=== PATIENT | male | born 1970 | race Caucasian/White ===

== ENCOUNTER 2020-04-24 02:37 | Emergency (ER) | payer OTHER, MEDICAID, SELFPAY ==
[2020-04-24 02:48] VITALS: BP 145/92; PULSE 112; RESP 17; TEMP 37.2; O2SAT 97; BMI 23.7
--- NOTE | 2020-04-24 02:50 | ED_ITS ---
HPI - General Adult <Michel Charles DO - Last Filed: 04/24/20 07:29> General Chief complaint: Psychiatric Symptoms Stated complaint: scared shitless Time Seen by Provider: 04/24/20 02:40 Source: patient Mode of arrival: Ambulatory Limitations: no limitations History of Present Illness HPI narrative: Patient is a 49-year-old male brought in voluntarily with police for evaluation after he called the police because he states that he still 2 individuals he in his hotel room this evening. He states he did do meth last evening. He states that he does drink ?a little ?alcohol but did not have any last evening. He states he is not currently seeing or hearing any individuals. He states the 2 individuals who were in his room last evening were calling him names. He states he is not suicidal, not homicidal. 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 He has been admitted to the hospital in the past for depression. Related Data Allergies Allergy/AdvReac Type Severity Reaction Status Date / Time No Known Drug Allergies Allergy Verified 04/24/20 03:31 Review of Systems <Michel Charles DO - Last Filed: 04/24/20 07:29> Constitutional Constitutional: Denies headache(s) ENT Ears, Nose, Mouth, and Throat: Denies headache(s) Cardiovascular Cardiovascular: Denies chest pain and Denies dyspnea Respiratory Respiratory: Denies dyspnea Gastrointestinal Gastrointestinal: Denies abdominal pain Neurologic Neurologic: Denies headache(s) Psychiatric Psychiatric: Reports visual hallucinations, Denies homicidal ideation and Denies suicidal ideation Hematologic/Lymphatic Hematologic/Lymphatic: Denies easy bruising Patient History <Michel Charles DO - Last Filed: 04/24/20 07:29> Medical History Depression Drug abuse Social History lives independently: Yes Smoking Status: Current every day smoker Exam <Michel Charles DO - Last Filed: 04/24/20 07:29> Initial Vital Signs Initial Vital Signs: Vital Signs Temperature 99 F 04/24/20 02:48 Pulse Rate 112 H 04/24/20 02:48 Respiratory Rate 17 04/24/20 02:48 Blood Pressure 145/92 H 04/24/20 02:48 Pulse Oximetry 97 04/24/20 02:48 Const General: cooperative HENMT Head: normal to inspection and normocephalic Resp Effort & Inspection: normal respiratory effort Cardio Rate: regular rate Skin Lesions: no lesions Rashes: no rashes Neuro General: patient alert and patient awake Extrem General: normal to inspection Psych Appearance: disheveled Speech and Movement: speech clear and restless Mood: anxious mood, paranoid and No angry Affect: anxious affect and elated Attitude: cooperative Thought Process: illogical Thought Content: no homicidality and suicidality <Carrie Rossi DO - Last Filed: 04/24/20 19:20> Initial Vital Signs Initial Vital Signs: Vital Signs Temperature 99 F 04/24/20 02:48 Pulse Rate 112 H 04/24/20 02:48 Respiratory Rate 17 04/24/20 02:48 Blood Pressure 145/92 H 04/24/20 02:48 Pulse Oximetry 97 04/24/20 02:48 Course <Michel Charles DO - Last Filed: 04/24/20 07:29> Orders Ordered: ED Orders 04/24/20 15:15 COVID19 Stat Discontinued Medications Lorazepam (Lorazepam 0.5 Mg Tablet) 1 mg PO NOW ONE Stop: 04/24/20 15:16 Last Admin: 04/24/20 15:32 Dose: 1 mg Documented by: GEOVANNI Nicotine (Nicotine 21 Mg Patch) 21 mg TOP NOW ONE Stop: 04/24/20 14:27 Last Admin: 04/24/20 14:44 Dose: 21 mg Documented by: GEOVANNI Vital Signs Vital signs: Vital Signs - 8 hr 04/24/20 15:53 Pulse Rate 93 H Respiratory Rate 16 Blood Pressure 137/82 Pulse Oximetry 98 <Carrie Rossi DO - Last Filed: 04/24/20 19:20> Orders Ordered: ED Orders 04/24/20 15:15 COVID19 Stat Discontinued Medications Lorazepam (Lorazepam 0.5 Mg Tablet) 1 mg PO NOW ONE Stop: 04/24/20 15:16 Last Admin: 04/24/20 15:32 Dose: 1 mg Documented by: GEOVANNI Nicotine (Nicotine 21 Mg Patch) 21 mg TOP NOW ONE Stop: 04/24/20 14:27 Last Admin: 04/24/20 14:44 Dose: 21 mg Documented by: GEOVANNI Vital Signs Vital signs: Vital Signs - 8 hr 04/24/20 15:53 Pulse Rate 93 H Respiratory Rate 16 Blood Pressure 137/82 Pulse Oximetry 98 Medical Decision Making <Michel Charles DO - Last Filed: 04/24/20 07:29> Lab Data Lab results reviewed: Yes I reviewed the patient's lab results. Result diagrams: 04/24/20 02:57 04/24/20 02:57 Labs: Lab Results 04/24/20 04/24/20 04/24/20 Range/Units 02:57 02:57 02:57 WBC 10.9 (4.5-11.0) X10^3/uL RBC 4.97 (4.5-5.9) X10^6/uL Hgb 16.8 (13.5-17.5) g/dL Hct 47.8 (41-53) % MCV 96.2 (80-100) fL MCH 33.7 (26-34) PG MCHC 35.1 (30-36) % RDW 12.1 (11.6-14.8) % Plt Count 250 (150-400) X10^3/uL Neut % (Auto) 71.9 (50-75) % Lymph % (Auto) 17.9 L (25-40) % [place] % (Auto) 8.8 (3-14) % Eos % (Auto) 1.0 L (2-4) % Baso % (Auto) 0.4 (0-2) % Neut # (Auto) 7800 H (5327-5614) /uL Lymph # (Auto) 2000 (2990-3185) /uL [place] # (Auto) 1000 H (0-900) /uL Eos # (Auto) 100 (0-450) /uL Baso # (Auto) 0 (0-100) /uL Sodium 134 L (137-145) mmol/L Potassium 4.2 (3.4-5.1) mmol/L Chloride 99 (98-107) mmol/L Carbon Dioxide 25 (22-32) mmol/L BUN 11 (9-20) mg/dL Creatinine 0.86 (0.66-1.25) mg/dL Estimated GFR > 60.0 (>60) mL/min BUN/Creatinine Ratio 12.8 (6-22) Glucose 135 H (70-100) mg/dL Calcium 9.8 (8.4-10.2) mg/dL TSH 1.78 (0.47-4.68) uIU/mL U Opiates 300ng/mL cut (Negative) Ur Oxycodone Screen (Negative) Urine Methadone Screen (Negative) Ur Barbiturates Screen (Negative) U Tricyclic Antidepress (Negative) Ur Phencyclidine Scrn (Negative) Ur Amphetamines Screen (Negative) U Methamphetamines Scrn (Negative) Ur MDMA Scrn (Ecstasy) (Negative) U Benzodiazepines Scrn (Negative) Urine Cocaine Screen (Negative) U Marijuana (THC) Screen (Negative) Ethyl Alcohol < 10 ( - 10) mg/dL SARS-CoV-2 (PCR) (Negative) 04/24/20 04/24/20 Range/Units 09:33 15:15 WBC (4.5-11.0) X10^3/uL RBC (4.5-5.9) X10^6/uL Hgb (13.5-17.5) g/dL Hct (41-53) % MCV (80-100) fL MCH (26-34) PG MCHC (30-36) % RDW (11.6-14.8) % Plt Count (150-400) X10^3/uL Neut % (Auto) (50-75) % Lymph % (Auto) (25-40) % [place] % (Auto) (3-14) % Eos % (Auto) (2-4) % Baso % (Auto) (0-2) % Neut # (Auto) (0058-8741) /uL Lymph # (Auto) (8495-7959) /uL [place] # (Auto) (0-900) /uL Eos # (Auto) (0-450) /uL Baso # (Auto) (0-100) /uL Sodium (137-145) mmol/L Potassium (3.4-5.1) mmol/L Chloride (98-107) mmol/L Carbon Dioxide (22-32) mmol/L BUN (9-20) mg/dL Creatinine (0.66-1.25) mg/dL Estimated GFR (>60) mL/min BUN/Creatinine Ratio (6-22) Glucose (70-100) mg/dL Calcium (8.4-10.2) mg/dL TSH (0.47-4.68) uIU/mL U Opiates 300ng/mL cut Negative (Negative) Ur Oxycodone Screen Negative (Negative) Urine Methadone Screen Negative (Negative) Ur Barbiturates Screen Negative (Negative) U Tricyclic Antidepress Negative (Negative) Ur Phencyclidine Scrn Negative (Negative) Ur Amphetamines Screen Positive H (Negative) U Methamphetamines Scrn Positive H (Negative) Ur MDMA Scrn (Ecstasy) Negative (Negative) U Benzodiazepines Scrn Negative (Negative) Urine Cocaine Screen Negative (Negative) U Marijuana (THC) Screen Positive H (Negative) Ethyl Alcohol ( - 10) mg/dL SARS-CoV-2 (PCR) Negative (Negative) MDM Narrative Medical decision making narrative: Patient did admit to doing methamphetamine last night. He was not homicidal, not suicidal. Slept in the emergency departm ent. Care turned over to day provider to follow up and disposition. <Carrie Rossi, DO - Last Filed: 04/24/20 19:20> Lab Data Labs: Lab Results 04/24/20 04/24/20 04/24/20 Range/Units 02:57 02:57 02:57 WBC 10.9 (4.5-11.0) X10^3/uL RBC 4.97 (4.5-5.9) X10^6/uL Hgb 16.8 (13.5-17.5) g/dL Hct 47.8 (41-53) % MCV 96.2 (80-100) fL MCH 33.7 (26-34) PG MCHC 35.1 (30-36) % RDW 12.1 (11.6-14.8) % Plt Count 250 (150-400) X10^3/uL Neut % (Auto) 71.9 (50-75) % Lymph % (Auto) 17.9 L (25-40) % [place] % (Auto) 8.8 (3-14) % Eos % (Auto) 1.0 L (2-4) % Baso % (Auto) 0.4 (0-2) % Neut # (Auto) 7800 H (0311-0708) /uL Lymph # (Auto) 2000 (0715-7314) /uL [place] # (Auto) 1000 H (0-900) /uL Eos # (Auto) 100 (0-450) /uL Baso # (Auto) 0 (0-100) /uL Sodium 134 L (137-145) mmol/L Potassium 4.2 (3.4-5.1) mmol/L Chloride 99 (98-107) mmol/L Carbon Dioxide 25 (22-32) mmol/L BUN 11 (9-20) mg/dL Creatinine 0.86 (0.66-1.25) mg/dL Estimated GFR > 60.0 (>60) mL/min BUN/Creatinine Ratio 12.8 (6-22) Glucose 135 H (70-100) mg/dL Calcium 9.8 (8.4-10.2) mg/dL TSH 1.78 (0.47-4.68) uIU/mL U Opiates 300ng/mL cut (Negative) Ur Oxycodone Screen (Negative) Urine Methadone Screen (Negative) Ur Barbiturates Screen (Negative) U Tricyclic Antidepress (Negative) Ur Phencyclidine Scrn (Negative) Ur Amphetamines Screen (Negative) U Methamphetamines Scrn (Negative) Ur MDMA Scrn (Ecstasy) (Negative) U Benzodiazepines Scrn (Negative) Urine Cocaine Screen (Negative) U Marijuana (THC) Screen (Negative) Ethyl Alcohol < 10 ( - 10) mg/dL SARS-CoV-2 (PCR) (Negative) 04/24/20 04/24/20 Range/Units 09:33 15:15 WBC (4.5-11.0) X10^3/uL RBC (4.5-5.9) X10^6/uL Hgb (13.5-17.5) g/dL Hct (41-53) % MCV (80-100) fL MCH (26-34) PG MCHC (30-36) % RDW (11.6-14.8) % Plt Count (150-400) X10^3/uL Neut % (Auto) (50-75) % Lymph % (Auto) (25-40) % [place] % (Auto) (3-14) % Eos % (Auto) (2-4) % Baso % (Auto) (0-2) % Neut # (Auto) (3559-7499) /uL Lymph # (Auto) (0507-2675) /uL [place] # (Auto) (0-900) /uL Eos # (Auto) (0-450) /uL Baso # (Auto) (0-100) /uL Sodium (137-145) mmol/L Potassium (3.4-5.1) mmol/L Chloride (98-107) mmol/L Carbon Dioxide (22-32) mmol/L BUN (9-20) mg/dL Creatinine (0.66-1.25) mg/dL Estimated GFR (>60) mL/min BUN/Creatinine Ratio (6-22) Glucose (70-100) mg/dL Calcium (8.4-10.2) mg/dL TSH (0.47-4.68) uIU/mL U Opiates 300ng/mL cut Negative (Negative) Ur Oxycodone Screen Negative (Negative) Urine Methadone Screen Negative (Negative) Ur Barbiturates Screen Negative (Negative) U Tricyclic Antidepress Negative (Negative) Ur Phencyclidine Scrn Negative (Negative) Ur Amphetamines Screen Positive H (Negative) U Methamphetamines Scrn Positive H (Negative) Ur MDMA Scrn (Ecstasy) Negative (Negative) U Benzodiazepines Scrn Negative (Negative) Urine Cocaine Screen Negative (Negative) U Marijuana (THC) Screen Positive H (Negative) Ethyl Alcohol ( - 10) mg/dL SARS-CoV-2 (PCR) Negative (Negative) MDM Narrative Medical decision making narrative: Patient signed out to me from Dr. Charles of seen evaluated patient myself. When asked if he is still seeing things that are not there he said ?0h you too he then stated he just wanted to but did not give me a plan. He then covered himself up in blankets and did not answer any more questions. He was evaluated by social Work. Patient is accepted at [facility] Discharge Plan Departure Patient Disposition: Home Clinical Impression: Polysubstance abuse Instructions: DI for Substance Use Disorder Activity Restrictions/Additional Instructions: Medically cleared for [facility] COVID negative GO DIRECTLY TO THE REHAB FACILITY WITHOUT STOPPING Please follow-up with her primary care provider once released for any further medical issues
[2020-04-24 03:24] LABS: Add Manual Diff / Slide Review NO; Basophils Absolute Auto 0 /uL (0-100); Basophils Percent Auto 0.4 % (0-2); Eosinophils Absolute Auto 100 /uL (0-450); Hematocrit 47.8 % (41-53); Hemoglobin 16.8 g/dL (13.5-17.5); Lymphocytes Absolute Auto 2000 /uL (1100-4500); Lymphocytes Percent Auto 17.9 % (25-40); Mean Corpuscular HGB Conc 35.1 % (30-36); Mean Corpuscular Hemoglobin 33.7 PG (26-34); Mean Corpuscular Volume 96.2 fL (80-100); Monocytes Absolute Auto 1000 /uL (0-900); Monocytes Percent Auto 8.8 % (3-14); Neutrophils Absolute Auto 7800 /uL (1500-7000); Neutrophils Percent Auto 71.9 % (50-75); Platelet Count 250 X10^3/uL (150-400); Red Blood Cell Count 4.97 X10^6/uL (4.5-5.9); Red Cell Distribution Width 12.1 % (11.6-14.8); White Blood Cell Count 10.9 X10^3/uL (4.5-11.0)
[2020-04-24 03:27] LABS: BUN Creatinine Ratio 12.8 (6-22); Blood Urea Nitrogen 11 mg/dL (9-20); Calcium 9.8 mg/dL (8.4-10.2); Carbon Dioxide 25 mmol/L (22-32); Chloride 99 mmol/L (98-107); Estimated Glomerular Filt Rate > 60.0 mL/min (>60); Ethanol (ETOH) < 10 mg/dL; Glucose 135 mg/dL (70-100); HEMOLYSIS 25 (0-50); Potassium 4.2 mmol/L (3.4-5.1); Sodium 134 mmol/L (137-145)
--- NOTE | 2020-04-24 03:30 | PC.NURSE ---
pt requesting shower. offered pt. independently showered.
[2020-04-24 04:04] LABS: Thyroid Stimulating Hormone 1.78 uIU/mL (0.47-4.68)
[2020-04-24 09:48] LABS: UR Morphine/Opiate cutoff 300 Negative (Negative); Ur Creatinine Normal (Normal); Ur Specific Gravity Normal (Normal); Urine Amphetamines Positive (Negative); Urine Barbiturates Negative (Negative); Urine Benzodiazepines Negative (Negative); Urine Cocaine Negative (Negative); Urine MDMA Negative (Negative); Urine Methadone Negative (Negative); Urine Methamphetamines Positive (Negative); Urine Oxycodone Negative (Negative); Urine Phencyclidine Negative (Negative); Urine Tetrahydrocannabinol Positive (Negative); Urine Tricyclic Antidepressant Negative (Negative); Urine pH Normal (Normal)
[2020-04-24 10:15] VITALS: BP 98/54; PULSE 93; RESP 16; O2SAT 98
--- NOTE | 2020-04-24 13:02 | PC.NURSE ---
Meeting with JET Neville. sitting up in bed eating lunch
--- NOTE | 2020-04-24 13:09 | PC.NURSE ---
Pt given toothbrush and toothpaste, performing ADLs independently.
[2020-04-24] MEDS: NICOTINE 21 MG PATCH TOP (14:44)
--- NOTE | 2020-04-24 15:23 | CM.SWNOTE ---
MOVIE THEATER MANAGER assessment MOVIE THEATER MANAGER - Solutions Sales Consultant Assessment MOVIE THEATER MANAGER - Solutions Sales Consultant Assessment Start: 04/24/20 14:23 Freq: Status: Active Protocol: Document 04/24/20 14:23 OLIVA (Rec: 04/24/20 15:23 OLIVA [email or web address]) MOVIE THEATER MANAGER/Solutions Sales Consultant Assessment Time Spent with Patient Start date 04/24/20 Visit Start Time 12:20 End date 04/24/20 Visit End Time 13:00 Total time Care Management spent on 40 patient visit-in minutes Mental Health Screening Include Onset, Duration, Intensity Presenting Problem Patient presents to this ED by police due to paranoia and hallucinations. Per report from patient, patient heard someone break into the hotel room he was staying at, police and management searched room and premises and found no signs of break in. Patient reports he then moved to a different motel, noticed a car with two passengers that nodded to him as he walked by , and called the police again because he believed that the passengers in this vehicle had followed him from previous motel. Patient states I know this sounds crazy, I'm not delusional during assessment. Precipitating Event(s) Patient endorses snorting meth previous evening. Patient discusses significant life stressors during past 6 months, including relapse on alcohol, loss of job and housing, and tension with family members. Patient informs MOVIE THEATER MANAGER that he has not been able to get his psych meds for roughly 6 months. Patient Strengths Patient has been consistent and persistent in his efforts to obtaining treatment and recovery services. Current Behavioral Health Provider(s) None current Include Facility, Provider, Ph. # Psych. Hx Mental Health and Chemical Patient reports previous dx of Dependency anxiety, depression, OCD, and presents to this ED with delusions and paranoia. Patient states I'm an alcoholic, and relapsed from a 7 year period of sobriety roughly 1 year prior. Patient endorses meth use from previous day, but states that he last did meth a few years ago. Patient states he drank 3 beers previous morning. Family Hx of Behavioral Abuse Patient reports tension with his sister with whom he lives. Psychiatric Hospitalizations (date(s)/ Patient reports previous location) behavioral health hospitalization at [facility] . Psychosocial information & Support Patient is a 49 y/o male who Systems lost his housing and job in [place] roughly 6 months ago after relapsing on ETOH. Patient has been working with [facility] to obtain inpatient treatment at [facility] and has been living with his sister in [place]. Patient reports tension in this living situation and reports that he has spent some nights sleeping outside due to the tension. Patient states he has several family members, but does not describe any as strong support systems. 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 Mental Status Orientation (Person/Place/Time) Oriented x3 Stated Mood OK Affect (Congruent with Mood?) anxious, tearful, stable, congruent with mood. Thought Content - Specify/Describe Delusions, paranoia, and audio Obsessions, Delusions, Hallucinations hallucinations reported by patient previous evening. Thought Processes (Nvnngwk-Htjmbfxg-Hmdp Coherent Iwwnavwf-Cphblgpm-Kelsyunnwx- Mjzkhgrrjzadow-Dkectib-Xuialwjqbyru- Thought Blocking) Speech (Vmsayo-Vwfe-Nuxczff-Rapid-Soft- Normal Loud-Pressured) Motor (Swueww-Zqchbjipd-Rapb-Other) Slight fidgeting Insight (Buwv-Iqvz-Pzzo/Limited) Poor Judgement (Atbe-Rraa-Wsgk/Limited) Poor Impulse Control (Adequate-Impaired) Adequate in interview Memory (Wjvtvenuy-Xjuxpm-Ibipin, Intact for interview, not Impaired-Intact) formally assessed Concentration (Intact-Impaired) Intact Attention (Intact-Impaired) Intact Behavior (Appropriate-Inappropriate) Appropriate Risk Assessment Suicidal Ideation (Plan) Yes Homicidal Ideation (Plan) No Comment Patient denies HI. Patient endorses SI with plan and hopelessness. Patient states if he were to kill himself, he would do so by hanging, and explains that a close family member committed suicide by this method. Patient reports when he is sober he does not think he would follow through with plan as he does not want to cause pain for his family, but states that he feels closer to suicide after a few beers, and informs MOVIE THEATER MANAGER that he is feeling cravings for ETOH. Intervention Intervention MOVIE THEATER MANAGER meets with patient. Patient and MOVIE THEATER MANAGER discuss events of previous evening. Patient does not show insight into the experience of delusions from previous evening, likely secondary to meth use. Patient reports significant life stressors and SI with plan, and explains severity of SI increases with ETOH use. Patient reports he is currently working with staff at [facility] for inpatient treatment. Patient provides MOVIE THEATER MANAGER consent to contact [facility] to discuss status. MOVIE THEATER MANAGER contacts Fabien at [facility] [phone], who states that they can accept patient for admission tonight. Conn requests COVID result. MOVIE THEATER MANAGER informs patient of the above. Patient anxious and agreeable. MOVIE THEATER MANAGER informs Dr. Rossi, KATHY Gonzalez and MARINA Baker . All parties agreeable with plan. Plan RA Plan Patient to d/c to N for inpatient co-occurring treatment. ED staff to arrange transport. JET Maynard
[2020-04-24] MEDS: LORazepam 0.5 MG TABLET 1 MG PO (15:32)
[2020-04-24 15:45] LABS: COVID19 -Nasal RAPID Negative (Negative)
[2020-04-24 15:53] VITALS: BP 137/82; PULSE 93; RESP 16; O2SAT 98
--- NOTE | 2020-04-24 15:53 | CM.SWNOTE ---
POOL CLEANER note POOL CLEANER faxes negative COVID result to [facility] at [phone] per request of Fabien at [facility]. Fax confirmation at [phone]. Jamin Orozco MSW
== END 2020-04-24 16:26 | disposition home or self-care (01) ==
PROVIDERS: Emergency Medicine; Emergency Provider Emergency Medicine
DX: F19.10 Other psychoactive substance abuse, uncomplicated (principal); Z20.822 Contact with and (suspected) exposure to COVID-19
CPT/HCPCS: 36415; 80048; 80305; 80320; 84443; 85025; 87635; 99283; C9803